=== PATIENT | male | born 1990 | race American Indian/Alaskan Native ===

== ENCOUNTER 2017-08-08 10:31 | Emergency (ER) | payer OTHER ==
[2017-08-08 10:37] VITALS: BP 137/91
--- NOTE | 2017-08-08 11:36 | Emergency Department Report ---
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 A.A. male that presents for coughing up blood for 4 days. 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 He had 1 episode this morning. It was a big clot of blood. He is a smoker and usually smokes 1 ppd. He stopped smoking every since this started 4 days ago. He went to [facility] yesterday and they discharged him and advised to f/u outpatient. They didn't give him a copy of labs and CXR. Denies chest pain, recent injury, SOB, asthma, or fever. ED Review of Systems ROS: Stated complaint: COUGHING UP BLOOD Other details as noted in HPI Constitutional: denies: chills, fever ENT: denies: ear pain, throat pain, congestion Respiratory: denies: cough, orthopnea, shortness of breath, SOB with exertion, SOB at rest, wheezing Cardiovascular: denies: chest pain, palpitations Gastrointestinal: denies: abdominal pain, nausea, vomiting, diarrhea, hematochezia Musculoskeletal: denies: back pain, joint swelling, arthralgia Neurological: denies: headache, weakness, paresthesias ED Past Medical Hx - Past Medical History Previous Medical History?: No - Surgical History Past Surgical History?: No - Social History Smoking Status: Former Smoker Substance Use Type: None Minor Respiratory Exam - Exam General: Vital signs noted. No distress. Alert and acting appropriately. HEENT: Yes Pharyngeal Erythema, Yes Moist Mucous Membranes, No Pharyngeal Exudates, No Rhinorrhea, No Conjuctival Injection, No Frontal Tenderness, No Maxillary Tenderness Ear: Neither TM Bulge, Neither TM Erythema, Neither EAC Pain, Neither EAC Discharge Neck: Yes Supple, No Adenopathy Lungs: Yes Good Air Exchange, Yes Cough, No Wheezes, No Ronchi, No Stridor, No Labored Respirations, No Retractions, No Use of Accessory Muscles, No Other Abnormal Lung Sounds Heart: Yes Regular, No Murmur Abdomen: Yes Normal Bowel Sounds, No Tenderness, No Peritoneal Signs Skin: No Rash, No Edema Neurologic: Alert and oriented, no deficits. Musculoskeletal: Unremarkable. ED Course Vital Signs 08/08/17 10:35 Temperature 98 F Pulse Rate 92 H Respiratory 18 Rate Blood Pressure 137/91 O2 Sat by Pulse 100 Oximetry ED Medical Decision Making - Medical Decision Making 27 y.o. male that presents with hemoptysis for 4 days. Seen at [facility] yesterday. Had CBC, CMP, and CXR. He was discharged home and advised to f/u outpatient with pulmonary at [facility]. Patient examined by me and stable. No distress noted. He is requesting results from [facility]. Refuse additional test. Advised to f/u with [facility] because we can't pull results. He left before medical decision. Critical care attestation.: If time is entered above; I have spent that time in minutes in the direct care of this critically ill patient, excluding procedure time. ED Disposition Clinical Impression: Left before treatment completed Disposition: DC-07 LEFT AGAINST MED ADVICE Is pt being admited?: No Condition: Stable Referrals: PRIMARY CARE, [Primary Care Provider] - 3-5 Days
== END 2017-08-08 12:39 | disposition left against medical advice (07) ==
LOC: ED 10:31
DX: R04.2 Hemoptysis (principal); F17.200 Nicotine dependence, unspecified, uncomplicated; Z91.041 Radiographic dye allergy status; Z91.013 Allergy to seafood
CPT/HCPCS: 99282